=== PATIENT | male | born 1995 | race Caucasian/White ===

== ENCOUNTER 2021-03-09 02:25 | Emergency (ER) | payer OTHER ==
[~2021-03-09] VITALS: Ht 170.2 cm; Wt 70.3 kg
[~2021-03-09 02:25] MED LIST: ATOM40 PO; Zofran Odt4 MG PO; Zofran Odt4 MG SL
[2021-03-09] MEDS ORDERED: Cleocin HCl150 MG PO (05:49)
== END 2021-03-09 06:03 | disposition home or self-care (01) ==
LOC: ER 02:25
DX: S62.630B Displaced fracture of distal phalanx of right index finger, initial encounter for open fracture (principal); F90.0 Attention-deficit hyperactivity disorder, predominantly inattentive type; F17.220 Nicotine dependence, chewing tobacco, uncomplicated; W31.2XXA Contact with powered woodworking and forming machines, initial encounter; Z91.011 Allergy to milk products
CPT/HCPCS: 12002; 73130; 96365; 99283-25; J0690